=== PATIENT | male | born 1985 | race African-American/Black ===

== ENCOUNTER 2019-09-09 03:42 | Emergency (ER) | payer MEDICAID ==
[~2019-09-09] VITALS: Ht 154.9 cm; Wt 68.0 kg
[2019-09-09 03:42] VITALS: BP 120/72
== END 2019-09-09 04:04 | disposition home or self-care (01) ==
LOC: ER 03:47
DX: S51.852A Open bite of left forearm, initial encounter (principal); S51.851A Open bite of right forearm, initial encounter; J45.909 Unspecified asthma, uncomplicated; Z59.0 Homelessness; W53.11XA Bitten by rat, initial encounter; Y93.89 Activity, other specified; Y92.89 Other specified places as the place of occurrence of the external cause; Y99.8 Other external cause status